=== PATIENT | female | born 1965 | race Hispanic/Latino ===

== ENCOUNTER 2020-08-18 09:05 | Outpatient (CLI) | payer OTHER, SELFPAY ==
--- NOTE | ~2020-08-18 | XR_ITS ---
XR foot RT 2V, XR foot LT 2V 08/18/2020 09:20 Indication: Polyarthralgias Procedure: 2 views of each foot Comparison: No prior studies for comparison. Findings: There are small bilateral degenerative calcaneal enthesophytes. No fracture, subluxation or dislocation. No significant degenerative joint disease. No erosive changes. Lisfranc joints intact b ilaterally. Impression: 1: No significant bone or joint abnormality. Reviewed, dictated and finalized at location A. Impression: 1: No significant bone or joint abnormality. Impression: 1: No significant bone or joint abnormality.
--- NOTE | ~2020-08-18 | XR_ITS ---
XR hand RT 2V, XR hand LT 2V 08/18/2020 09:20 Indication: Polyarthralgias Procedure: 2 views of each hand Comparison: No prior studies for comparison. Findings: No fracture, subluxation or dislocation. No significant joint space narrowing. No erosive c hanges. No focal soft tissue abnormality. No radiopaque foreign bodies. Impression: 1: No significant bone or joint abnormality. Reviewed, dictated and finalized at location A. Impression: 1: No significant bone or joint abnormality. Impression: 1: No significant bone or joint abnormality.
== END 2020-08-18 09:06 ==
PROVIDERS: Visit Provider Physician Assistant Medical
DX: R76.8 Other specified abnormal immunological findings in serum (principal); M25.50 Pain in unspecified joint
CPT/HCPCS: 73120; 73620

== ENCOUNTER 2022-11-04 19:09 | Observation (INO) | payer OTHER, SELFPAY ==
--- NOTE | ~2022-11-04 | XR_ITS ---
Supine and upright views of the abdomen Clinical history: Right mid ureteral stone Findings: Bowel gas pattern is nonspecific. No evidence for obstruction or free air. Cholecystectomy clips noted. 6 mm calcification in the pelvis could reflect a distal right ureteral stone. Osseous st ructures are intact. Impression: Possible 6 mm distal right ureteral stone, as detailed above. Reviewed, dictated and finalized at [facility]. Impression: Possible 6 mm distal right ureteral stone, as detailed above.
--- NOTE | ~2022-11-04 | XR_ITS ---
EXAMINATION: XR retrograde pyelo w/stent RT DATE: 11/05/2022 13:26 INDICATION: Right internal ureteral stent placement TECHNIQUE: Fluoroscopic images from a right internal ureteral stent placement are submitted for zack white 41 seconds of fluoroscopy time. FINDINGS: There is a right double-J internal ureteral stent projecting in expected position, with proximal [place] loop at the level of the renal pelvis and distal loop in the pelvis within the bladder lumen. IMPRESSION: 1. Right internal ureteral stent placement. Please refer to real-time procedural findings for detai ls. Reviewed, dictated and finalized at location A. IMPRESSION: 1. Right internal ureteral stent placement. Please refer to real-time procedu ral findings for details.
--- NOTE | ~2022-11-04 | CT_ITS ---
EXAMINATION: CT abdomen pelvis wo con DATE: 11/04/2022 21:28 INDICATION: Right flank pain TECHNIQUE: Computed tomography (CT) of the abdomen and pelvis was performed without intravenous contr ast. The dose-length product was 1466.67 mGy-cm. Automated exposure control and iterative reconstruct ion technique were employed. COMPARISON: None. FINDINGS: Lung bases are unremarkable. Heart size is normal. There is subsegmental atelectasis. No significant vascular abnormality. No lymphadenopathy. The liver, spleen, pancreas, adrenal glands and left kidney are unremarkable. There are nonobstructin g right renal stones. There is moderate right hydronephrosis secondary to an obstructing right mid ur eteral stone measuring 9 x 6 mm. There is right periureteral and perinephric edema. Cannot exclude as cending urinary tract infection. Nonobstructive bowel pattern. Mild-moderate lower thoracic and lumba r spondylosis. There is a fat-containing umbilical hernia. Colonic diverticulosis without evidence fo r diverticulitis. IMPRESSION: 1. Right mid ureteral stone measuring 9 x 6 mm with moderate hydroureteronephrosis with perinephric a nd periureteral edema. 2: Nonobstructing right nephrolithiasis. Reviewed, dictated and finalized at location A. IMPRESSION: 1. Right mid ureteral stone measuring 9 x 6 mm with moderate hydroureteronephro sis with perinephric and periureteral edema. 2: Nonobstructing right nephrolithiasis.
[2022-11-04 19:15] VITALS: BP 179/82; PULSE 84; RESP 16; TEMP 36.6; O2SAT 98
[2022-11-04 20:10] LABS: Appearance Urine Clear (Clear); Bacteria Urine 1+ /hpf; Bilirubin Urine Negative (Negative); Color Urine Yellow (Yellow); Glucose Urine UA Negative (Negative); Ketones Urine 2+ mg/dL (Negative); Leukocyte Esterase Ur Negative LEU/UL (Negative); Nitrate Urine Negative (Negative); Non Pathogenic Casts 0-2; Protein Urine Negative (Negative); RBC Urine 0-2 /hpf (0-2); Specific Grav Ur 1.025 (1.001-1.035); Squamous Epithelial Cell Urine Few /hpf (Few); Urobilinogen Urine 0.2 mg/dL (<2.0); WBC Urine 0-5 /hpf; pH Urine 5.5 (5.0-9.0)
[2022-11-04 20:17] LABS: Add Urine Microscopic? YES
[2022-11-04] MEDS: SODIUM CHLORIDE 0.9% IV 1,000 ML 999 ML IV CONT (20:58)
[2022-11-04] MEDS: ONDANSETRON INJ 4 MG/2 ML VIAL IV PUSH (20:58)
[2022-11-04] MEDS: HYDROmorphone HCL INJ (*CRX) 1 MG/ML SYR IV PUSH (20:58)
[2022-11-04 21:08] LABS: Basophils Absolute Auto 0.1 K/mm3 (0.0-0.1); Basophils Percent Auto 0.5 % (0.2-1.2); Eosinophils Absolute Auto 0.1 K/mm3 (0-0.3); Eosinophils Percent Auto 0.6 % (0-4.4); Hematocrit 42.9 % (37.0-47.0); Hemoglobin 13.8 g/dL (12.0-15.0); Immature Granulocyte Absolute 0.06 K/mm3 (0.00-0.031); Immature Granulocyte Percent A 0.4 % (0-0.5); Lymphocytes Percent Auto 15.1 % (18.3-44.2); Mean Corpuscular HGB Conc 32.2 g/dl (32-36); Mean Corpuscular Hemoglobin 30.8 pg (26-34); Mean Corpuscular Volume 95.8 fl (80-100); Mean Platelet Volume 10.3 fl (7.4-10.4); Monocytes Percent Auto 6.5 % (2.6-8.5); Neutrophils Absolute Auto 11.8 K/mm3 (1.3-6.7); Neutrophils Percent Auto 76.9 % (45.5-73.1); Platelet Count Result 270 k/mm3 (150-375); Red Blood Count 4.48 M/mm3 (4.2-5.4); Red Cell Distribution Width 14.6 % (11.5-14.5); White Blood Count 15.3 K/mm3 (4.5-10.0)
--- NOTE | 2022-11-04 21:10 | ED.GENADULT ---
HPI - General Adult General Chief complaint: Urogenital-Female Stated complaint: back pain Time Seen by Provider: 11/04/22 19:26 History of Present Illness HPI narrative: 57-year-old female present emergency department for evaluation of right flank pain. Patient states she has had some right flank pain with associated nausea. Patient denies any pain with urination and denies any prior history of kidney stones. Related Data Allergies Allergy/AdvReac Type Severity Reaction Status Date / Time No Known Allergies Allergy Verified 11/04/22 19:17 Review of Systems Review of Systems: All systems reviewed & are unremarkable except as noted in HPI and below Exam Narrative: APPEARANCE: Well appearing, no pain, no distress, well-nourished. HEAD: normocephalic, atraumatic. EYES: PERRLA/EOMI, conjunctivae clear. NOSE: Normal no drainage NECK: Supple. No adenopathy, no masses. RESPIRATORY: Airway patent, respirations nonlabored. Clear to auscultation bilaterally, no rales, rhonchi, wheezing. CARDIOVASCULAR: Regular rate and rhythm without murmurs rubs or gallops. ABDOMINAL: Right CVA tenderness and right lower quadrant tenderness to palpation MUSCULOSKELETAL: Moves all extremities. Strength/ROM intact, No edema, No calf tenderness. NEURO: Alert. Cranial nerves II through XII intact. SKIN: Warm, dry. Normal Color Course Course Emergency Course: 57-year-old female presented the ED for evaluation of right flank pain. Patient was afebrile but does have a leukocytosis of 15.3. Patient did have a mild QUINTON with a creatinine of 1.1, patient's baseline creatinine is not known. UA showed no major evidence of infection but did show some bacteremia with squamous cells as well. Urine culture is pending. CT scan did show a 9 x 6 mm mid ureteral right kidney stone. Patient's pain was mildly controlled in the ED patient was offered discharge to home but patient reports she would feel more comfortable being admitted. Case was discussed with hospitalist patient was accepted for admission. Urology was paged regarding the admission. Vital Signs Vital signs: Vital Signs Temperature 97.9 F 11/04/22 19:15 Pulse Rate 84 11/04/22 19:15 Respiratory Rate 16 11/04/22 19:15 Blood Pressure 179/82 H 11/04/22 19:15 Pulse Oximetry 98 11/04/22 19:15 Oxygen Delivery Room Air 11/04/22 19:15 Temperature 97.9 F 11/04/22 19:15 Pulse Rate 75 11/04/22 22:35 Respiratory Rate 16 11/04/22 22:35 Blood Pressure 150/63 H 11/04/22 22:35 Pulse Oximetry 96 11/04/22 22:35 Oxygen Delivery Room Air 11/04/22 19:15 Medical Decision Making Differential Diagnosis Differential Diagnosis: UTI, ureteral calculi, septic stone Vital Signs Vital Signs: Vital Signs Temperature 97.9 F 11/04/22 19:15 Pulse Rate 84 11/04/22 19:15 Respiratory Rate 16 11/04/22 19:15 Blood Pressure 179/82 H 11/04/22 19:15 Pulse Oximetry 98 11/04/22 19:15 Oxygen Delivery Room Air 11/04/22 19:15 Temperature 97.9 F 11/04/22 19:15 Pulse Rate 75 11/04/22 22:35 Respiratory Rate 16 11/04/22 22:35 Blood Pressure 150/63 H 11/04/22 22:35 Pulse Oximetry 96 11/04/22 22:35 Oxygen Delivery Room Air 11/04/22 19:15 Lab Data 11/04/22 21:02 11/04/22 21:02 Labs: Lab Results 11/04/22 11/04/22 Range/Units 19:57 21:02 WBC 15.3 H (4.5-10.0) K/mm3 RBC 4.48 (4.2-5.4) M/mm3 Hgb 13.8 (12.0-15.0) g/dL Hct 42.9 (37.0-47.0) % MCV 95.8 (80-100) fl MCH 30.8 (26-34) pg MCHC 32.2 (32-36) g/dl RDW 14.6 H (11.5-14.5) % Plt Count 270 (150-375) k/mm3 MPV 10.3 (7.4-10.4) fl Immature Gran % (Auto) 0.4 (0-0.5) % Neut % (Auto) 76.9 H (45.5-73.1) % Lymph % (Auto) 15.1 L (18.3-44.2) % [place] % (Auto) 6.5 (2.6-8.5) % Eos % (Auto) 0.6 (0-4.4) % Baso % (Auto) 0.5 (0.2-1.2) % Lymph # (Auto) 2.30 (0.9-3.2) K/mm3 [place] # (Auto) 1.0 H (0.1-0.
[2022-11-04 21:26] LABS: Alanine Aminotransferase 43 U/L (6-35); Albumin Level 4.3 g/dL (3.5-5.1); Alkaline Phosphatase 90 U/L (38-126); Anion Gap 9 mmol/L (8-16); Aspartate Amino Transferase 40 U/L (14-36); Bilirubin,Total 0.5 mg/dL (0.2-1.3); Blood Urea Nitrogen 11 mg/dL (7-17); Calcium 8.8 mg/dL (8.4-10.2); Carbon Dioxide 27 mmol/L (22-30); Chloride 105 mmol/L (98-107); Estimated CRCL calculation 58 ml/min; Estimated Glomerular Filt Rate 51; Glucose 107 mg/dL (65-110); Potassium 3.7 mmol/L (3.4-5.0); Sodium 141 mmol/L (137-145)
[2022-11-04] MEDS: SODIUM CHLORIDE 0.9% IV 1,000 ML 125 ML IV CONT (22:33)
[2022-11-04 22:35] VITALS: BP 150/63; PULSE 75; RESP 16; O2SAT 96
[2022-11-04] MEDS: HYDROmorphone HCL INJ (*CRX) 1 MG/ML SYR 0.5 MG IV PUSH (22:39)
[2022-11-04 23:42] VITALS: BMI 47.5
[2022-11-04 23:43] VITALS: BP 148/84; PULSE 76; RESP 18; TEMP 37.2; O2SAT 95
--- NOTE | 2022-11-04 23:45 | ADMGEN ---
This patient, Dottie Lanza, was admitted to 2 Medical Room 260-01. Patient/family oriented to hospital policies and general routines including ID bracelet, bed and alarms, visiting hours, pain management, procedures, bathroom and other care routines, personal items, smoking policy, room service/diet, and visiting hours. Information on how to activate the Rapid Response Team has been discussed. Patient/Family are encouraged to report perceived risks to care and to ask questions if they do not understand what they are told or what they should do.
[2022-11-05] VITALS (16 sets, daily range): BP systolic 133–190; BP diastolic 69–92; PULSE 78–86; RESP 16–22; TEMP 36.1–37.7; O2SAT 94–100
--- NOTE | 2022-11-05 01:58 | PM.IMHP ---
H&P: HPI History of Present Illness Date/Time: 11/05/22 01:58 Chief Complaint: flank pain Narrative: this is a 57-year-old female with past medical history significant for morbid obesity, generalized anxiety disorder, hypertension. patient presents to the emergency room due to 2 days of flank pain nausea and vomiting patient has been in her usual state of health up until this point denies any fevers, rigors, diarrhea, pain or burning with urination. CT abdomen and pelvis EXAMINATION: CT abdomen pelvis wo con DATE: 11/04/2022 21:28 INDICATION: Right flank pain TECHNIQUE: Computed tomography (CT) of the abdomen and pelvis was performed without intravenous contrast. The dose-length product was 1466.67 mGy-cm. Automated exposure control and iterative reconstruction technique were employed. COMPARISON: None. FINDINGS: Lung bases are unremarkable. Heart size is normal. There is subsegmental atelectasis. No significant vascular abnormality. No lymphadenopathy. The liver, spleen, pancreas, adrenal glands and left kidney are unremarkable. There are nonobstructing right renal stones. There is moderate right hydronephrosis secondary to an obstructing right mid ureteral stone measuring 9 x 6 mm. There is right periureteral and perinephric edema. Cannot exclude ascending urinary tract infection. Nonobstructive bowel pattern. Mild-moderate lower thoracic and lumbar spondylosis. There is a fat-containing umbilical hernia. Colonic diverticulosis without evidence for diverticulitis. IMPRESSION: 1. Right mid ureteral stone measuring 9 x 6 mm with moderate hydroureteronephrosis with perinephric and periureteral edema. 2:? Nonobstructing right nephrolithiasis Review of Systems Review of Systems: flank pain, nausea, vomiting Constitutional: Constitutional: Denies fatigue, Denies fever(s), Denies malaise, Denies night sweats and Denies weakness Eyes: Eyes: Denies change in vision ENT: Denies dysphagia, Denies vertigo, Denies dizziness and Denies odynophagia Cardiovascular: Cardiovascular: Denies chest pain, Denies radiating jaw, neck or arm pain and Denies palpitations Respiratory: Respiratory: Denies chest congestion, Denies cough, Denies excessive phlegm production and Denies dyspnea Gastrointestinal: Gastrointestinal: Denies abdominal pain, Denies dyspepsia, Denies heartburn, Denies diarrhea, Denies loose stools, Reports nausea and Reports vomiting Genitourinary: Genitourinary: Denies dysuria and Reports flank pain Musculoskeletal: Musculoskeletal: Denies back pain, Denies arthralgias, Denies joint swelling and Denies tingling Integumentary/Breasts: Skin/Breast: Denies rash Neurologic: Denies focal weakness and Denies Sensory deficit (Neuro) Psychiatric: Psychiatric: Reports no additional psychiatric complaints and Reports as per HPI Endocrine: Endocrine: Denies cold intolerance, Denies flushing, Denies heat intolerance, Denies polyphagia, Denies polydipsia and Denies palpitations Hematologic/Lymphatic: Hematologic/Lymphatic: Reports no additional hematologic/lymphatic complaints and Reports as per HPI Allergic/Immunologic: Allergic/Immunologic: Reports no additional allergic/immunologic complaints and Reports as per HPI PMFSH Social History Social History Smoking status: Former smoker Tobacco type: cigarettes Smoking end date: 04/13/95 Alcohol intake: current Drinks per week: 1 Substance use: current Substance use type: marijuana Lack of Transportation: No Lack of Food: Never True Current Housing: I Have Housing Concerned About Future Housing: No Difficulty Paying Gas/Electric Bills: No Difficulty Paying for Meds: No Currently Unemployed: No Education: High School Diploma/GED Difficulty w/ Childcare or Family Care: No Spiritual care concerns: No Meds Home Medications and Allergies Home Medications Medication Instructions Recorded Confirmed Type bupropion HCl 300 m
[2022-11-05] MEDS: SODIUM CHLORIDE 0.9% IV 1,000 ML 125 ML IV CONT ×2 (06:00→19:23)
[2022-11-05] MEDS: ONDANSETRON INJ 4 MG/2 ML VIAL IV PUSH ×2 (06:02→13:43)
[2022-11-05] MEDS: HYDROmorphone HCL INJ (*CRX) 1 MG/ML SYR 0.5 MG IV PUSH ×2 (06:03→10:34)
[2022-11-05 06:33] LABS: Glucose Point of Care 96 mg/dl (65-105)
[2022-11-05] MEDS: buPROPion HCL XL (24 HR) 150 MG TABCR 300 MG PO (08:48)
--- NOTE | 2022-11-05 09:13 | WPDURCON ---
Assessment and Plan Assessment and plan (1) Calculi, ureter: Code(s): N20.1 - Calculus of ureter Status: Acute Assessment and Plan: Obtain Consent: Cystoscopy, right ureteroscopy with stone extraction, right stent placement, right retrograde pyelogram, possible holmium laser. Patient to go to the OR today with Dr. Ritter, we discussed going on on oral pain medication and doing a lithotripsy later this week, however the patient declines as she is in too much pain and having severe nausea and without IV pain medication she cannot tolerate her pain. She wishes to proceed with ureteroscopy. Keep NPO. Ok to discharge home after surgical procedure if stable. Urology Consult Note HPI Date Seen: 11/05/22 Requesting Physician: Reagan Kaur MD Primary Care Provider: PHYSICIAN NOT ON STAFF Consult Narrative Reason for consult: Right Ureteral Stone Narrative: Dottie Lanza is a 57 year old female who presented to the ER yesterday with right flank pain that radiates to the RLQ and nausea. Her pain began on Thursday and worsened. She thought she had food poisoning as she has never had kidney stones in the past. She was found to have a 9x6mm right mid ureteral stone with ureteral edema noted on CT scan as well as a non obstructive right ureteral stone. WBC 15.3, creatinine 1.10, UA is normal and she is afebrile. She denies hematuria, dysuria, frequency or urgency to urinate. Review of Systems Cardiovascular: Cardiovascular: Reports no additional cardiovascular complaints Respiratory: Respiratory: Reports no additional respiratory complaints Gastrointestinal: Gastrointestinal: Reports abdominal pain, Reports nausea and Denies vomiting Genitourinary: Genitourinary: Denies hematuria, Denies dysuria, Denies pelvic pain, Reports flank pain, Denies urinary hesitancy and Denies urinary urgency [facility] Social History Social History Smoking status: Former smoker Tobacco type: cigarettes Smoking end date: 04/13/95 Alcohol intake: current Drinks per week: 1 Substance use: current Substance use type: marijuana Lack of Transportation: No Lack of Food: Never True Current Housing: I Have Housing Concerned About Future Housing: No Difficulty Paying Gas/Electric Bills: No Difficulty Paying for Meds: No Currently Unemployed: No Education: High School Diploma/GED Difficulty w/ Childcare or Family Care: No Spiritual care concerns: No Meds Home Medications and Allergies Home Medications Medication Instructions Recorded Confirmed Type bupropion HCl 300 mg 24 hr tablet, 300 mg PO DAILY 11/04/22 11/04/22 History extended release cholestyramine-aspartame 4 gram 1 ea PO DAILY 11/04/22 11/04/22 History oral powder for susp in a packet (Cholestyramine Light) lisinopril 20 mg tablet 20 mg PO DAILY 11/04/22 11/04/22 History metformin 500 mg tablet,extended 1,000 mg PO DAILY 11/04/22 11/04/22 History release 24 hr rimegepant 75 mg disintegrating 75 mg PO PRN PRN Migraine Headache 11/04/22 11/04/22 History tablet (Nurtec ODT) Allergies Allergy/AdvReac Type Severity Reaction Status Date / Time No Known Allergies Allergy Verified 11/04/22 19:17 Vital Signs Vital Signs - 24 hr 11/04/22 19:15 11/04/22 22:35 11/04/22 23:55 Temperature 97.9 F Pulse Rate 84 75 Respiratory Rate 16 16 Blood Pressure 179/82 H 150/63 H Pulse Oximetry 98 96 Oxygen Delivery Room Air Room Air 11/04/22 23:43 Temperature 98.9 F Pulse Rate 76 Respiratory Rate 18 Blood Pressure 148/84 H Pulse Oximetry 95 Oxygen Delivery Exam Const: General: cooperative and comfortable Resp: Effort & Inspection: normal respiratory effort Cardio: Rate: regular rate GI: GI Palp: Yes Soft to palpation and Yes Tenderness to palpation present (GI) (RLQ) : General: Yes CVA tenderness on the right Extrem: Right lower ext
--- NOTE | 2022-11-05 10:19 | WPDANESEPPF ---
Anes - Initial Pre Proc Eval Procedure: Operation Date: 11/05/22 15:30 Proposed Procedures p Cystoscopy, Right Retrograde Pyelogram, Right Stone Extraction, Right Stent Placement(Right) - Zahra Ritter MD Date/Time: 11/05/22 10:19 Surgeon: Reagan Kaur MD Pre Op Diagnosis: Ureteral Calculi Patient Data Age: 57 Gender: F Height: 1.52 m Weight: 110.3 kg Last Vital Signs Temp 37.2 C 11/04/22 23:43 Pulse 76 11/04/22 23:43 Resp 18 11/04/22 23:43 BP 148/84 H 11/04/22 23:43 Pulse Ox 95 11/04/22 23:43 O2 Del Method Room Air 11/04/22 23:55 Allergies Allergy/AdvReac Type Severity Reaction Status Date / Time No Known Allergies Allergy Verified 11/04/22 19:17 Home Medications Medication Instructions Recorded Confirmed Type bupropion HCl 300 mg 24 hr tablet, 300 mg PO DAILY 11/04/22 11/04/22 History extended release cholestyramine-aspartame 4 gram 1 ea PO DAILY 11/04/22 11/04/22 History oral powder for susp in a packet (Cholestyramine Light) lisinopril 20 mg tablet 20 mg PO DAILY 11/04/22 11/04/22 History metformin 500 mg tablet,extended 1,000 mg PO DAILY 11/04/22 11/04/22 History release 24 hr rimegepant 75 mg disintegrating 75 mg PO PRN PRN Migraine Headache 11/04/22 11/04/22 History tablet (Nurtec ODT) Laboratory Tests 11/04/22 11/04/22 11/05/22 19:57 21:02 06:30 WBC 15.3 H K/mm3 (4.5-10.0) RBC 4.48 M/mm3 (4.2-5.4) Hgb 13.8 g/dL (12.0-15.0) Hct 42.9 % (37.0-47.0) MCV 95.8 fl (80-100) MCH 30.8 pg (26-34) MCHC 32.2 g/dl (32-36) RDW 14.6 H % (11.5-14.5) Plt Count 270 k/mm3 (150-375) MPV 10.3 fl (7.4-10.4) Immature Gran % (Auto) 0.4 % (0-0.5) Neut % (Auto) 76.9 H % (45.5-73.1) Lymph % (Auto) 15.1 L % (18.3-44.2) [place] % (Auto) 6.5 % (2.6-8.5) Eos % (Auto) 0.6 % (0-4.4) Baso % (Auto) 0.5 % (0.2-1.2) Lymph # (Auto) 2.30 K/mm3 (0.9-3.2) [place] # (Auto) 1.0 H K/mm3 (0.1-0.6) Eos # (Auto) 0.1 K/mm3 (0-0.3) Baso # (Auto) 0.1 K/mm3 (0.0-0.1) Abs Immat Gran (auto) 0.06 H K/mm3 (0.00-0.031) Absolute Neuts (auto) 11.8 H K/mm3 (1.3-6.7) Absolute Nucleated RBC 0.0 K/mm3 (0.0-0.012) Nucleated RBC % 0.0 % (0.0-0.2) Sodium 141 mmol/L (137-145) Potassium 3.7 mmol/L (3.4-5.0) Chloride 105 mmol/L (98-107) Carbon Dioxide 27 mmol/L (22-30) Anion Gap 9 mmol/L (8-16) BUN 11 mg/dL (7-17) Creatinine 1.10 H mg/dL (0.7-1.0) Estim Creat Clear Calc 58 ml/min Estimated GFR 51 L (59 - ) Glucose 107 mg/dL (65-110) POC Capillary Glucose 96 mg/dl (65-105) Calcium 8.8 mg/dL (8.4-10.2) Total Bilirubin 0.5 mg/dL (0.2-1.3) AST 40 H U/L (14-36) ALT 43 H U/L (6-35) Alkaline Phosphatase 90 U/L (38-126) Total Protein 8.0 g/dL (6.3-8.2) Albumin 4.3 g/dL (3.5-5.1) Urine Color Yellow (Yellow) Urine Appearance Clear (Clear) Urine pH 5.5 (5.0-9.0) Ur Specific [place] 1.025 (1.001-1.035) Urine Protein Negative mg/dL (Negative) Urine Glucose (UA) Negative mg/dL (Negative) Urine Ketones 2+ H mg/dL (Negative) Ur Blood (Man) Non-hemolyzed trace (Negative) Urine Nitrate Negative (Negative) Urine Bilirubin Negative (Negative) Urine Urobilinogen 0.2 mg/dL (<2.0) Leukocyte Esterase Rfl Negative RILEY/UL (Negative) Urine RBC 0-2 /hpf (0-2) Urine WBC 0-5 /hpf Ur Squamous Epith Cells Few /hpf (Few) Urine Bacteria 1+ H /hpf Uri
[2022-11-05] MEDS: LACTATED RINGERS 1,000 ML 30 ML IV CONT (11:15)
--- NOTE | 2022-11-05 11:17 | WPDANESEPPF ---
Anes - Initial Pre Proc Eval Procedure: Operation Date: 11/05/22 15:30 Proposed Procedures p Cystoscopy, Right Retrograde Pyelogram, Right Stone Extraction, Right Stent Placement(Right) - Zahra Ritter MD Date/Time: 11/05/22 11:17 Surgeon: Reagan Kaur MD Pre Op Diagnosis: Ureteral Calculi Patient Data Age: 57 Gender: F Height: 1.52 m Weight: 110.3 kg Last Vital Signs Temp 98.9 F 11/04/22 23:43 Pulse 76 11/04/22 23:43 Resp 18 11/04/22 23:43 BP 148/84 H 11/04/22 23:43 Pulse Ox 95 11/04/22 23:43 O2 Del Method Room Air 11/04/22 23:55 Allergies Allergy/AdvReac Type Severity Reaction Status Date / Time No Known Allergies Allergy Verified 11/05/22 11:09 Home Medications Medication Instructions Recorded Confirmed Type bupropion HCl 300 mg 24 hr tablet, 300 mg PO DAILY 11/04/22 11/04/22 History extended release cholestyramine-aspartame 4 gram 1 ea PO DAILY 11/04/22 11/04/22 History oral powder for susp in a packet (Cholestyramine Light) lisinopril 20 mg tablet 20 mg PO DAILY 11/04/22 11/04/22 History metformin 500 mg tablet,extended 1,000 mg PO DAILY 11/04/22 11/04/22 History release 24 hr rimegepant 75 mg disintegrating 75 mg PO PRN PRN Migraine Headache 11/04/22 11/04/22 History tablet (Nurtec ODT) Laboratory Tests 11/04/22 11/04/22 11/05/22 19:57 21:02 06:30 WBC 15.3 H K/mm3 (4.5-10.0) RBC 4.48 M/mm3 (4.2-5.4) Hgb 13.8 g/dL (12.0-15.0) Hct 42.9 % (37.0-47.0) MCV 95.8 fl (80-100) MCH 30.8 pg (26-34) MCHC 32.2 g/dl (32-36) RDW 14.6 H % (11.5-14.5) Plt Count 270 k/mm3 (150-375) MPV 10.3 fl (7.4-10.4) Immature Gran % (Auto) 0.4 % (0-0.5) Neut % (Auto) 76.9 H % (45.5-73.1) Lymph % (Auto) 15.1 L % (18.3-44.2) [place] % (Auto) 6.5 % (2.6-8.5) Eos % (Auto) 0.6 % (0-4.4) Baso % (Auto) 0.5 % (0.2-1.2) Lymph # (Auto) 2.30 K/mm3 (0.9-3.2) [place] # (Auto) 1.0 H K/mm3 (0.1-0.6) Eos # (Auto) 0.1 K/mm3 (0-0.3) Baso # (Auto) 0.1 K/mm3 (0.0-0.1) Abs Immat Gran (auto) 0.06 H K/mm3 (0.00-0.031) Absolute Neuts (auto) 11.8 H K/mm3 (1.3-6.7) Absolute Nucleated RBC 0.0 K/mm3 (0.0-0.012) Nucleated RBC % 0.0 % (0.0-0.2) Sodium 141 mmol/L (137-145) Potassium 3.7 mmol/L (3.4-5.0) Chloride 105 mmol/L (98-107) Carbon Dioxide 27 mmol/L (22-30) Anion Gap 9 mmol/L (8-16) BUN 11 mg/dL (7-17) Creatinine 1.10 H mg/dL (0.7-1.0) Estim Creat Clear Calc 58 ml/min Estimated GFR 51 L (59 - ) Glucose 107 mg/dL (65-110) POC Capillary Glucose 96 mg/dl (65-105) Calcium 8.8 mg/dL (8.4-10.2) Total Bilirubin 0.5 mg/dL (0.2-1.3) AST 40 H U/L (14-36) ALT 43 H U/L (6-35) Alkaline Phosphatase 90 U/L (38-126) Total Protein 8.0 g/dL (6.3-8.2) Albumin 4.3 g/dL (3.5-5.1) Urine Color Yellow (Yellow) Urine Appearance Clear (Clear) Urine pH 5.5 (5.0-9.0) Ur Specific [place] 1.025 (1.001-1.035) Urine Protein Negative mg/dL (Negative) Urine Glucose (UA) Negative mg/dL (Negative) Urine Ketones 2+ H mg/dL (Negative) Ur Blood (Man) Non-hemolyzed trace (Negative) Urine Nitrate Negative (Negative) Urine Bilirubin Negative (Negative) Urine Urobilinogen 0.2 mg/dL (<2.0) Leukocyte Esterase Rfl Negative RILEY/UL (Negative) Urine RBC 0-2 /hpf (0-2) Urine WBC 0-5 /hpf Ur Squamous Epith Cells Few /hpf (Few) Urine Bacteria 1+ H /hpf Uri
--- NOTE | 2022-11-05 12:22 | WPDHPUPDATE1 ---
History and Physical Update Update Date/Time: 11/05/22 12:22 History and Physical has been reviewed, including an updated exam of the patient. There are NO changes in the patient's condition. Risks, benefits, and alternatives have been discussed and questions answered. Patient agrees to proceed with procedure.
[2022-11-05] MEDS: ceFAZolin 2 GM/D5W 50 ML 2 GM/50 ML BAG IVPB (12:38)
--- NOTE | 2022-11-05 13:25 | W.PM.PROC2 ---
Procedure Note - Detailed Date of Procedure 11/05/22 Pre-op Diagnosis Right ureteral Calculi Post-op Diagnosis Same Procedure Performed Cystoscopy, right ureteroscopy, laser lithotripsy, stone extraction, retrograde pyelogram, stent placement Surgeon Zahra Ritter MD Anesthesia General Description of Procedure Informed consent was obtained. Patient taken the operating. She was given preoperative IV antibiotics. She had induced anesthesia. She was prepped draped normal sterile fashion. We inserted a 22 F cystoscope through the urethra into the bladder. Inspection of bladder revealed no mucosal abnormalities. The patient had bilateral orthotopic ureteral orifices. We then cannulated the right ureteral orifice with a Sensor wire. We will to manipulate the wire beyond the level of the stone that was visible in the mid/distal ureter. We then dilate with a 10 coaxial dilator. Adjacent the wire we then advanced a semi rigid ureteral scope above the level of the iliac vessels we encountered a mild narrowing of the ureter and then the large stone. The stone was too large to remove in 1 piece. We were able to use the Kiddie Kist laser fiber in order to fragment the stone and dusting fashion. All significant stone fragments were then grasped with a escape basket and removed and sent as specimen. We inspected the distal half of the ureter and there were no significant remaining stones only small fragments/dust. Retrograde pyelogram revealed moderate to severe right hydronephrosis and no extravasation. Over the wire we placed a 6 F variable length stent with a curl in the renal pelvis and a curl in the bladder. Bladder was emptied 10cc of lidocaine were instilled. The patient was then awakened and taken to recovery room stable condition Patient to follow-up in approximately 2 weeks for ureteral stent removal Urine Output 100 Pathology Yes Complications No immediate complications Condition Stable Disposition PACU
[2022-11-05] MEDS: LIDOCAINE HCL 2% GEL UROJET 10 ML PKG MUCOUS MEM (13:31)
[2022-11-05 13:36] LABS: Glucose Point of Care 95 mg/dl (65-105)
[2022-11-05] MEDS: diphenhydrAMINE HCl INJ 50 MG/ML VIAL 12.5 MG IV PUSH ×2 (14:09→14:28)
[2022-11-05] MEDS: CHOLESTYRAMINE LIGHT 4 GM POWD.PACK PO (15:37)
[2022-11-05 17:29] LABS: Glucose Point of Care 129 mg/dl (65-105)
[2022-11-05] MEDS: KETOROLAC 30 MG/ML VIAL (*BKC) IV PUSH (19:26)
[2022-11-05 21:26] LABS: Glucose Point of Care 108 mg/dl (65-105)
[2022-11-06 02:00] VITALS: BP 121/55; PULSE 70; RESP 18; TEMP 36.4; O2SAT 96
[2022-11-06] MEDS: SODIUM CHLORIDE 0.9% IV 1,000 ML 125 ML IV CONT (05:17)
[2022-11-06 06:00] VITALS: BP 119/64; PULSE 64; RESP 18; TEMP 36.3; O2SAT 97
[2022-11-06 08:22] LABS: Glucose Point of Care 91 mg/dl (65-105)
--- NOTE | 2022-11-06 08:43 | PM.DS ---
DS: Admitting Diagnosis Discharge Date November 06 Admitting Diagnosis Calculi, ureter DS: Discharge Diagnosis Discharge Diagnosis (1) Calculi, ureter: Code(s): N20.1 - Calculus of ureter Status: Acute Assessment and Plan: place in observation regular medical floor IV fluids pain management urology consult (2) Morbid obesity with BMI of 45.0-49.9, adult: Code(s): E66.01 - Morbid (severe) obesity due to excess calories; Z68.42 - Body mass index [BMI] 45.0-49.9, adult Status: Acute Assessment and Plan: lifestyle and diet modifications (3) T2DM (type 2 diabetes mellitus): Code(s): E11.9 - Type 2 diabetes mellitus without complications Status: Acute Assessment and Plan: holding metformin insulin sliding scale as needed DS: Summary Hospital Course Reason for hospitalization: Kidney stone, ureter calculi Hospital Course: HPI obtained from chart: This is a 57-year-old female with past medical history significant for morbid obesity, generalized anxiety disorder, hypertension. patient presents to the emergency room due to 2 days of flank pain nausea and vomiting patient has been in her usual state of health up until this point denies any fevers, rigors, diarrhea, pain or burning with urination. Imaging shows right mid ureteral stone measuring 9 x 6 mm with moderate hydroureter nephrosis with perinephric and periureteral edema. As well as a nonobstructing right nephrolithiasis. Patient is admitted with consult to Urology, IV fluids, antibiotics, and pain control Interval history: 11/05: Patient seen resting in bed she appears uncomfortable. She says that her pain is a 6/10 to her right flank. She currently denies nausea, vomiting but she has also been NPO for anticipated procedure. She denies dysuria but does endorse frequency. Denies shortness of breast, chest pain, dizziness, headache, diarrhea, constipation. Urology has already seen her and she is set to go for a cystoscopy with ureteral stent placement and stone extraction. Patient may discharge later today if not in the morning. 11/06: Patient is seen early this afternoon doing well. She states that she had a fairly restful night's sleep. She does feel stent and has some discomfort with that but it is manageable and her pain is much improved since her procedure yesterday. She is tolerating a diet and voiding appropriately. I reviewed with her discharge plan including discharge with Augmentin for a 4 day course as she received IV cefazolin yesterday. She will need follow-up with Urology in 1 weeks time for stent removal. She has no questions or concerns at this time Status at Discharge Cognitive/behavioral status at discharge: Independent, functional Time Spent with Patient Time attestation: Total time spent providing and/or coordinating discharge services:35 Exam Narrative: General: well-nourished, obese 57-year-old female, laying in bed, appears uncomfortable Neuro: awake, alert and oriented x4, speech clear, no focal neuro deficits noted HEENMT: normocephalic, atraumatic, EOMI, sclerae anicteric, moist oral mucosa Respiratory: Clear to auscultation bilaterally without crackles, rhonchi or wheezes, nonlabored breathing Cardio: regular rate, regular rhythm with S1-S2 Abdomen: nondistended, normoactive bowel sounds, soft, nontender to palpation Musculoskeletal: CVA tenderness has resolved Extremities: no edema, erythema, or tenderness to palpation, DP pulses 2+ bilaterally Skin: no rashes or lesions, warm and dry Psych: appropriate mood and affect, judgment and insight intact DS: Data Data Completed and Pending Completed studies during hospitalization: Pending at discharge 11/05/22 13:17 Surgical [PTH] Routine Labs on day of discharge: Labs from last 24 hours 11/06/22 11/05/22 11/05/22 08:16 21:05 17:25 POC Capillary Glucose 91 108 H 129 H 11/05/22 13:33
[2022-11-06 09:12] LABS: Basophils Absolute Auto 0.1 K/mm3 (0.0-0.1); Basophils Percent Auto 0.6 % (0.2-1.2); Eosinophils Absolute Auto 0.1 K/mm3 (0-0.3); Eosinophils Percent Auto 1.2 % (0-4.4); Hemoglobin 12.3 g/dL (12.0-15.0); Immature Granulocyte Absolute 0.04 K/mm3 (0.00-0.031); Immature Granulocyte Percent A 0.4 % (0-0.5); Lymphocytes Absolute Auto 3.11 K/mm3 (0.9-3.2); Lymphocytes Percent Auto 28.7 % (18.3-44.2); Mean Corpuscular HGB Conc 31.5 g/dl (32-36); Mean Corpuscular Hemoglobin 30.5 pg (26-34); Mean Corpuscular Volume 96.8 fl (80-100); Mean Platelet Volume 10.2 fl (7.4-10.4); Monocytes Absolute Auto 0.7 K/mm3 (0.1-0.6); Monocytes Percent Auto 6.1 % (2.6-8.5); Neutrophils Absolute Auto 6.8 K/mm3 (1.3-6.7); Platelet Count Result 240 k/mm3 (150-375); Red Blood Count 4.03 M/mm3 (4.2-5.4); Red Cell Distribution Width 14.6 % (11.5-14.5); White Blood Count 10.8 K/mm3 (4.5-10.0)
[2022-11-06 09:17] LABS: Alanine Aminotransferase 45 U/L (6-35); Albumin Level 3.7 g/dL (3.5-5.1); Alkaline Phosphatase 72 U/L (38-126); Anion Gap 8 mmol/L (8-16); Aspartate Amino Transferase 36 U/L (14-36); Bilirubin,Total 0.3 mg/dL (0.2-1.3); Blood Urea Nitrogen 9 mg/dL (7-17); Calcium 8.3 mg/dL (8.4-10.2); Carbon Dioxide 26 mmol/L (22-30); Chloride 107 mmol/L (98-107); Estimated CRCL calculation 77 ml/min; Estimated Glomerular Filt Rate > 60; Glucose 106 mg/dL (65-110); Potassium 3.2 mmol/L (3.4-5.0); Sodium 141 mmol/L (137-145)
[2022-11-06] MEDS: buPROPion HCL XL (24 HR) 150 MG TABCR 300 MG PO (09:28)
--- NOTE | 2022-11-06 10:21 | WPDANESPN ---
Anes - Prog Note Post-Op Date/Time: 11/06/22 10:21 Vital Signs: Last Vital Signs Temp 36.3 C L 11/06/22 06:00 Pulse 64 11/06/22 06:00 Resp 18 11/06/22 06:00 BP 119/64 11/06/22 06:00 Pulse Ox 97 11/06/22 06:00 O2 Del Method Room Air 11/05/22 20:00 O2 Flow Rate 10 11/05/22 13:30 Pain Score (VAS): 0 I/O: Intake & Output 11/05/22 11/06/22 11/06/22 23:59 07:59 15:59 Intake Total 790 1000 480 Output Total 1700 250 Balance -910 750 480 Laboratory Tests 11/06/22 09:02 11/06/22 09:02 11/05/22 11/05/22 11/05/22 13:33 17:25 21:05 WBC RBC Hgb Hct MCV MCH MCHC RDW Plt Count MPV Immature Gran % (Auto) Neut % (Auto) Lymph % (Auto) [place] % (Auto) Eos % (Auto) Baso % (Auto) Lymph # (Auto) [place] # (Auto) Eos # (Auto) Baso # (Auto) Abs Immat Gran (auto) Absolute Neuts (auto) Absolute Nucleated RBC Nucleated RBC % Sodium Potassium Chloride Carbon Dioxide Anion Gap BUN Creatinine Estim Creat Clear Calc Estimated GFR Glucose POC Capillary Glucose 95 129 H 108 H Calcium Total Bilirubin AST ALT Alkaline Phosphatase Total Protein Albumin 11/06/22 11/06/22 08:16 09:02 WBC 10.8 H RBC 4.03 L Hgb 12.3 Hct 39.0 MCV 96.8 MCH 30.5 MCHC 31.5 L RDW 14.6 H Plt Count 240 MPV 10.2 Immature Gran % (Auto) 0.4 Neut % (Auto) 63.0 Lymph % (Auto) 28.7 [place] % (Auto) 6.1 Eos % (Auto) 1.2 Baso % (Auto) 0.6 Lymph # (Auto) 3.11 [place] # (Auto) 0.7 H Eos # (Auto) 0.1 Baso # (Auto) 0.1 Abs Immat Gran (auto) 0.04 H Absolute Neuts (auto) 6.8 H Absolute Nucleated RBC 0.0 Nucleated RBC % 0.0 Sodium 141 Potassium 3.2 L Chloride 107 Carbon Dioxide 26 Anion Gap 8 BUN 9 Creatinine 0.80 Estim Creat Clear Calc 77 Estimated GFR > 60 Glucose 106 POC Capillary Glucose 91 Calcium 8.3 L Total Bilirubin 0.3 AST 36 ALT 45 H Alkaline Phosphatase 72 Total Protein 7.0 Albumin 3.7 Patient Feedback: Patient satisfied with anesthetic care.
[2022-11-06 10:37] VITALS: BP 139/69; PULSE 70; RESP 16; TEMP 37.1; O2SAT 98
[2022-11-06] MEDS: CHOLESTYRAMINE LIGHT 4 GM POWD.PACK PO (11:25)
[2022-11-06 12:19] LABS: Glucose Point of Care 98 mg/dl (65-105)
[2022-11-06] MEDS: AMOXICILLIN/CLAVULANATE K 875-125 MG TAB 1 TABLET PO (13:48)
== END 2022-11-06 14:25 | disposition home or self-care (01) ==
LOC: ANHED 22:43 → ANH2MED 11-05 09:25
PROVIDERS: Nurse Practitioner Acute Care; Urology; Admitting Provider Internal Medicine; Emergency Provider Emergency Medicine; Visit Provider Student in an Organized Health Care Education/Training Program
PROC: (CPT 52352; principal; 2022-11-05 15:30)
DX: N13.2 Hydronephrosis with renal and ureteral calculous obstruction (principal); N17.9 Acute kidney failure, unspecified; D72.829 Elevated white blood cell count, unspecified; R79.89 Other specified abnormal findings of blood chemistry; I10 Essential (primary) hypertension; E11.9 Type 2 diabetes mellitus without complications; R51.9 Headache, unspecified; F41.1 Generalized anxiety disorder; E66.01 Morbid (severe) obesity due to excess calories; Z68.42 Body mass index [BMI] 45.0-49.9, adult; F10.90 Alcohol use, unspecified, uncomplicated; F12.90 Cannabis use, unspecified, uncomplicated; Z87.891 Personal history of nicotine dependence; Z79.84 Long term (current) use of oral hypoglycemic drugs; Z79.899 Other long term (current) drug therapy
CPT/HCPCS: 52325; 52352; 52332; 36415; 74018; 74176; 74420; 80053; 81001; 82365; 82948; 85025; 88300; 96361; 96374; 96375; 99285; A9270; C1758; C1769; G0378; J0690; J1100; J1170; J1200; J1885; J2405; J2704; J3010; J7030; J7120; Q9966

== ENCOUNTER 2022-12-25 13:57 | Outpatient (CLI) | payer OTHER, SELFPAY ==
--- NOTE | ~2022-12-25 | XR_ITS ---
XR abdomen/kub 1V 12/25/2022 14:14 INDICATION: Right ureteral stone TECHNIQUE: KUB COMPARISON: KUB dated 11/05/2022 FINDINGS: Bowel gas pattern is normal. There is no evidence of free air, mass, organomegaly, ascites or obstruction. No abnormal calculi are seen. The bones appear intact. IMPRESSION: 1: No acute abdominal abnormality identified. Reviewed, dictated and finalized at location L.
== END 2022-12-25 13:58 | disposition home or self-care (01) ==
PROVIDERS: Visit Provider Urology
DX: N20.1 Calculus of ureter (principal)
CPT/HCPCS: 74018

== ENCOUNTER 2023-04-28 14:08 | Outpatient (CLI) | payer OTHER, SELFPAY ==
--- NOTE | ~2023-04-28 | XR_ITS ---
EXAMINATION: XR abdomen/kub 1V DATE: 04/28/2023 14:26 INDICATION: Right ureteral stone. TECHNIQUE: A supine view of the abdomen on 2 radiographs was obtained. COMPARISON: CT abdomen and pelvis 11/04/2022, abdomen radiographs 01/24/2023 FINDINGS: There are no dilated loops of bowel. Surgical clips in the right upper quadrant are likely from cholecystectomy. IMPRESSION: 1. No visible urolithiasis. Reviewed, dictated and finalized at location E. ANGE OPERATOR IMPRESSION: 1. No visible urolithiasis.
== END 2023-04-28 14:09 | disposition home or self-care (01) ==
LOC: ANHIMG 14:14
PROVIDERS: Visit Provider Urology
DX: N20.1 Calculus of ureter (principal)
CPT/HCPCS: 74018

== ENCOUNTER 2024-05-20 15:31 | Outpatient (CLI) | payer OTHER, SELFPAY ==
--- NOTE | ~2024-05-20 | XR_ITS ---
Exam: Abdomen 1V HISTORY: Renal Stones COMPARISON: 04/28/2023 and 12/25/2022 TECHNIQUE: Supine images of the abdomen FINDINGS: Bowel gas pattern is non-obstructive. There is no free air or deep sulci. No pathologic calcifications are seen. Lung bases are unremarkable. Bones and soft tissues are unremarkable. IMPRESSION: Nonspecific, nonobstructive bowel gas pattern. Reviewed, dictated and finalized at location A. L CLEANER HAND
--- NOTE | ~2024-05-20 | CT_ITS ---
CLINICAL INDICATION: Renal stones COMPARISON: 11/04/2022. TECHNIQUE: Multiple contiguous axial images of the abdomen and pelvis were performed without the admi nistration of intravenous contrast The dose-length product (DLP) was 991.56 mGy-cm. Automated exposure control and iterative reconstruction technique were employed. FINDINGS/OBSERVATIONS: Visualized lower thorax: The bilateral lung bases are clear. The heart is of normal size, without pericardial effusion. Small hiatal hernia is present. Liver: The liver demonstrates homogeneous attenuation and is not enlarged measuring 14 cm in longitudinal di mension. Gallbladder and biliary system: The gallbladder is surgically absent Pancreas: Limited evaluation of the pancreas secondary to the lack of intravenous contrast. Spleen: The spleen demonstrates homogeneous attenuation and is not enlarged measuring 6 cm in longitudinal di mension. Kidneys: Two nonobstructing renal calculi are visualized within the right kidney. 3.1 mm within the lower pole of the right kidney. 2.8 mm within the interpolar region. No calcified stones are identified within the left kidney. No hydronephrosis detected bilaterally. Adrenal glands: Unremarkable. Gastrointestinal tract: Unremarkable. Appendix: The air-filled appendix is of normal caliber (axial series, images 87-93). Vasculature: Unremarkable. Lymph nodes: No pathologically enlarged or morphologically suspicious lymph nodes within the retroperitoneum or at the root of the mesentery. Pelvic structures: The bladder is decompressed, and otherwise unremarkable. The uterus is anteverted and anteflexed, and otherwise unremarkable. Body wall and musculoskeletal: Small fat-containing umbilical hernia. No significant degenerative disease within the lower thoracic or lumbosacral spine. IMPRESSION: Two nonobstructing renal calculi within the right kidney, despite the inability to detect these stone s on plain film evaluation. Examination is otherwise unremarkable, as detailed above. Reviewed, dictated and finalized at location A. OR DATA MODELER IMPRESSION: Two nonobstructing renal calculi within the right kidney, despite the inability to detect these stones on plain film evaluation. Examination is otherwise unremarkable, as detailed above.
== END 2024-05-20 15:32 | disposition home or self-care (01) ==
PROVIDERS: Visit Provider Nurse Practitioner Family
DX: N20.0 Calculus of kidney (principal)
CPT/HCPCS: 74018; 74176